=== PATIENT | female | born 1985 | race Caucasian/White ===

== ENCOUNTER 2022-09-06 02:06 | Emergency (ER) | payer BC, OTHER, SELFPAY ==
[~2022-09-06] VITALS: Ht 170.2 cm; Wt 122.7 kg
[~2022-09-06 02:06] MED LIST: NOCURR
[2022-09-06 03:01] LABS: COVID AG,FIA SOURCE NASAL SWAB
[2022-09-06 03:18] LABS: RAPID GROUP A STREP NEGATIVE (NEGATIVE)
[2022-09-06 03:23] LABS: INFLUENZA TYPE A NEGATIVE FOR TYPE A (NEGATIVE); INFLUENZA TYPE B NEGATIVE FOR TYPE B (NEGATIVE)
[2022-09-06] MEDS ORDERED: BENZONATATE 100 MG CAPSULE PO ONE (03:30)
[2022-09-06] MEDS ORDERED: DiphenhydrAMINE HCL 25 MG CAPSULE PO ONE (03:30)
[2022-09-06] MEDS ORDERED: GuaiFENesin/D-METHORPHAN [SUGAR-FREE] 200-20MG/10 ML SYRUP UDCUP PO ONE (03:30)
[2022-09-06] MEDS ORDERED: BENZ-70 PO (03:34)
[2022-09-06] MEDS ORDERED: PSEU-191 PO (03:34)
[2022-09-06] MEDS ORDERED: GUAIFDM PO (03:34)
[2022-09-06] MEDS ORDERED: DIPH50CA37 PO (03:34)
[2022-09-06] MEDS ORDERED: ACET-66 PO (03:34)
[2022-09-06 04:02] VITALS: BP 129/81
== END 2022-09-06 04:05 | disposition home or self-care (01) ==
LOC: EMS 02:07
DX: H10.9 Unspecified conjunctivitis (principal); J06.9 Acute upper respiratory infection, unspecified; Z87.891 Personal history of nicotine dependence; Z20.822 Contact with and (suspected) exposure to COVID-19; Z98.890 Other specified postprocedural states
CPT/HCPCS: 87430; 87804; 99284; Z7502; Z7610